=== PATIENT | male | born 1955 | race African-American/Black ===

== ENCOUNTER 2019-07-09 08:15 | Inpatient (IN) ==
[2019-07-09] MEDS ORDERED: DEXTROSE 50% 25 GM/50 ML VIAL IV PRN ×2 (09:06→09:21)
[2019-07-09] MEDS ORDERED: GLUCAGON 1 MG VIAL IM PRN ×2 (09:06→09:21)
[2019-07-09] MEDS ORDERED: CEFUROXIME INJ 1,500 MG in SYRINGE 1 EACH IV ONE (09:06)
[2019-07-09 12:01] LABS: Basophils # 0.1 10*3/uL (0.0-0.2); Basophils % 0.9 % (0.0-0.8); Eosinophils # 0.3 10*3/uL (0.0-0.87); Eosinophils % 4.6 % (0.00-10.9); Hematocrit 29.9 VOL% (42.0-52.0); Immature Granulocytes % 0.3 %; Immature Granulocytes Absolute 0.02 #; Lymphocytes # 1.4 10*3/uL (1.4-4.0); Lymphocytes % 21.5 % (21.2-54.2); Mean Corpuscular HGB Conc 33.4 GM/DL (32-36); Mean Corpuscular Volume 92.6 FL (87-102); Mean Platelet Volume 11.2 FL (9.6-12.0); Neutrophils % 64.7 % (38.7-73.9); Platelet Count 230 T/CUMM (130-400); Red Blood Count 3.23 MC/CUMM (3.8-5.5); Red Cell Distribution Width 13.7 % (9.3-17.3); White Blood Count 6.5 T/CUMM (4-12)
[2019-07-09] MEDS ORDERED: INFLUENZA VIRUS VACCINE 0.5 ML SYRINGE IM ONE (12:01)
[2019-07-09] MEDS ORDERED: PNEUMOCOCCAL VACCINE (13 VALENT) 0.5 ML SYRINGE IM ONE (12:01)
[2019-07-09] MEDS: INSULIN LISPRO 100 UNIT/ML SUBCUT SCH ×3 (12:02→21:03)
[2019-07-09 12:19] LABS: Albumin 2.8 G/DL (3.4-5.0); Bilirubin,Total 0.5 MG/DL (0.2-1.0); Calcium 8.4 MG/DL (8.5-10.1); Osmolality,Calculated 270.1 MOS/KG (273-304)
[2019-07-09] MEDS ORDERED: clonazePAM 0.5 MG TABLET PO PRN (12:32)
[2019-07-09] MEDS ORDERED: HYDROmorphone 2 MG/1 ML VIAL IV PRN (12:35)
[2019-07-09] MEDS: oxyCODONE/ACETAMINOPHEN 5-325 MG TABLET PO PRN ×2 (12:52→20:10)
[2019-07-09] MEDS: CHLORHEXIDINE 4% SOLN 118 ML BOTTLE TOP SCH ×2 (15:15→21:03)
[2019-07-09] MEDS ORDERED: DIAZEPAM 5 MG TABLET PO ONE (20:52)
[2019-07-09] MEDS ORDERED: PANTOPRAZOLE 40 MG TABLET PO ONE (20:52)
[2019-07-09] MEDS: CHLORHEXIDINE 0.12% ORAL RINSE 60 ML BOTTLE SWISH/SPIT SCH (21:03)
[2019-07-10] MEDS: SODIUM CHLORIDE 0.9% 1,000 ML IV SCH ×3 (00:18→20:06)
[2019-07-10 03:38] LABS: ABG Base Excess 0.3 MMOL/L (-2.5-2.5); ABG HCO3 24.7 MMOL/L (20-26); ABG Oxygen Saturation 96.8 % (95-100); ABG PCO2 33.9 MM HG (35-48); ABG PH 7.454 (7.35-7.45); ABG PO2 78.8 MM HG (80-95); ABG TCO2 21.2 MMOL/L (23-27); Allen Test Positive
[2019-07-10] MEDS: oxyCODONE/ACETAMINOPHEN 5-325 MG TABLET PO PRN (03:59)
[2019-07-10] MEDS ORDERED: VANCOMYCIN 500 MG VIAL ONE (04:22)
[2019-07-10] MEDS ORDERED: PAPAVERINE 60 MG/2 ML VIAL ONE (04:22)
[2019-07-10] MEDS ORDERED: VANCOMYCIN 1,000 MG VIAL ONE (04:22)
[2019-07-10] MEDS ORDERED: CEFUROXIME INJ 1,500 MG in SYRINGE 1 EACH IV ONE (06:00)
[2019-07-10] MEDS ORDERED: DIAZEPAM 5 MG TABLET PO ONE (06:00)
[2019-07-10] MEDS ORDERED: PANTOPRAZOLE 40 MG TABLET PO ONE (06:00)
[2019-07-10] MEDS ORDERED: SUFentanil 250 MCG/5 ML AMP ONE (06:00)
[2019-07-10] MEDS ORDERED: MIDAZOLAM 10 MG/2 ML VIAL ONE (06:01)
[2019-07-10] MEDS: CHLORHEXIDINE 4% SOLN 118 ML BOTTLE TOP SCH ×2 (06:25→11:31)
[2019-07-10 07:46] LABS: ABG Base Excess 0.8 MMOL/L (-2.5-2.5); ABG HCO3 25.2 MMOL/L (20-26); ABG PCO2 28.4 MM HG (35-48); ABG PH 7.519 (7.35-7.45); ABG TCO2 21.3 MMOL/L (23-27); Glucose Heart Surgery 170 MG/DL (74-106); Hematocrit Heart Surgery 26.9 PERCENT (42-52); Hemoglobin Heart Surgery 8.7 G/DL (14.0-18.0); Ionized Calcium Arterial 1.13 MMOL/L (1.21-1.46); PCO2 Patient Temp Arterial 28.4 MMHG; PH Patient Temp Arterial 7.519; Patient Temperature 37 CELCIUS; Potassium Heart/CVR 3.5 MMOL/L (3.5-5.1); Sodium Heart/CVR 136 MMOL/L (135-145)
[2019-07-10 08:04] LABS: Apearance,Urine CLEAR (Clear); Bilirubin,Urine Negative (Negative); Blood, Urine Small mg/dL (Negative); Glucose,Urine (UA) >=500 mg/dL (Negative); Ketones,Urine Negative (Negative); Mucus,Urine Occasional /LPF (Occasional); Nitrite,Urine Negative (Negative); Protein,Urine Negative; RBC,Urine 3 /HPF (0-4); Squamous Epithelial Cell,Urine Occasional /HPF (0-10); Urine Color Straw (Yellow); Urine Specific Gravity 1.012 (1.001-1.035); Urine Urobilinogen < 2.0 EU/DL (0.2-1.0); WBC,Urine <1 /HPF (0-6)
[2019-07-10] MEDS ORDERED: POTASSIUM CHLORIDE RIDER 100 ML IV ONE (08:30)
[2019-07-10] MEDS ORDERED: NITROPRUSSIDE 50 MG/2 ML VIAL ONE (08:30)
[2019-07-10] MEDS ORDERED: SODIUM BICARBONATE 50 MEQ/50 ML VIAL IV ONE ×2 (08:30→10:08)
[2019-07-10] MEDS ORDERED: CALCIUM CHLORIDE 1,000 MG/10 ML SYRINGE IV ONE (08:30)
[2019-07-10] MEDS ORDERED: LIDOCAINE 100 MG/5 ML SYRINGE ONE (08:32)
[2019-07-10] MEDS ORDERED: ALBUMIN 5% 12.5 GM/250 ML VIAL IV ONE (08:32)
[2019-07-10] MEDS ORDERED: ATROPINE 1 MG/10 ML SYRINGE ONE (08:32)
[2019-07-10] MEDS ORDERED: EPINEPHrine 1 MG/10 ML SYRINGE ONE (08:32)
[2019-07-10] MEDS ORDERED: PHENYLEPHRINE DRIP 40 MG/250 ML PREMIX IV ONE (08:38)
[2019-07-10 09:00] LABS: Hematocrit Heart Surgery 25.2 PERCENT (42-52); Hemoglobin Heart Surgery 8.1 G/DL (14.0-18.0); PCO2 Patient Temp Venous 28.9 MM HG; PH Patient Temp Venous 7.499; PO2 Patient Temp Venous 38.4 MM HG; Potassium Heart/CVR 4.6 MMOL/L (3.5-5.1); VBG Base Excess -0.2 MEQ/L (0-4); VBG HCO3 24.1 MEQ/L (24-28); VBG PCO2 31.8 MMHG (41-51); VBG PH 7.469; VBG PO2 44.1 MMHG (17-40)
[2019-07-10] MEDS ORDERED: HEPARIN/NACL 0.9% 2 UNITS/ML 500 ML IV ONE (09:07)
[2019-07-10] MEDS ORDERED: NITROGLYCERIN DRIP 50 MG/250 ML BOTTLE IV ONE (09:07)
[2019-07-10] MEDS ORDERED: PHENYLEPHRINE 10 MG/1 ML VIAL IV ONE (09:07)
[2019-07-10] MEDS ORDERED: THROMBIN TOPICAL (RECOMBINANT) 5,000 UNIT VIAL TOP ONE (09:25)
[2019-07-10 09:52] LABS: Hematocrit Heart Surgery 26.1 PERCENT (42-52); Hemoglobin Heart Surgery 8.4 G/DL (14.0-18.0); PH Patient Temp Venous 7.5; PO2 Patient Temp Venous 32.7 MM HG; Potassium Heart/CVR 4.4 MMOL/L (3.5-5.1); VBG HCO3 24.1 MEQ/L (24-28); VBG Oxygen Saturation 72.1 %; VBG PH 7.5; VBG PO2 32.7 MMHG (17-40)
[2019-07-10] MEDS ORDERED: MANNITOL 100 GM/500 ML BAG IV ONE (10:07)
[2019-07-10] MEDS ORDERED: DEXTROSE 5% KCL 20 MEQ 20 MEQ/1,000 ML BAG IV ONE (10:07)
[2019-07-10] MEDS ORDERED: LIDOCAINE 2% 5 ML VIAL ONE ×2 (10:07→11:56)
[2019-07-10] MEDS ORDERED: FUROSEMIDE 20 MG/2 ML VIAL ONE (10:08)
[2019-07-10] MEDS ORDERED: ALBUMIN 25% 25 GM/100 ML VIAL IV ONE ×2 (10:08→10:12)
[2019-07-10] MEDS ORDERED: MAGNESIUM SULFATE 5 GM/10 ML VIAL IV ONE (10:08)
[2019-07-10] MEDS ORDERED: PROTAMINE SULFATE 250 MG/25 ML VIAL IV ONE (10:08)
[2019-07-10] MEDS ORDERED: HEPARIN 10,000 UNIT/10 ML VIAL ONE (10:08)
[2019-07-10] MEDS ORDERED: methylPREDNISolone SOD SUC 1,000 MG/8 ML VIAL ONE (10:08)
[2019-07-10 10:19] LABS: ABG Base Excess -1.2 MMOL/L (-2.5-2.5); ABG HCO3 23.5 MMOL/L (20-26); ABG PCO2 32.3 MM HG (35-48); ABG PH 7.447 (7.35-7.45); ABG TCO2 20.4 MMOL/L (23-27); Glucose Heart Surgery 293 MG/DL (74-106); Hematocrit Heart Surgery 28.8 PERCENT (42-52); Hemoglobin Heart Surgery 9.3 G/DL (14.0-18.0); Ionized Calcium Arterial 1.28 MMOL/L (1.21-1.46); PCO2 Patient Temp Arterial 32.3 MMHG; PH Patient Temp Arterial 7.447; Patient Temperature 37 CELCIUS; Potassium Heart/CVR 3.8 MMOL/L (3.5-5.1); Sodium Heart/CVR 133 MMOL/L (135-145)
[2019-07-10] MEDS ORDERED: MAGNESIUM SULF RIDER 4 GM in PREMIX 1 EACH IV PRN (11:02)
[2019-07-10] MEDS ORDERED: ACETAMINOPHEN 650 MG SUPP RECTAL PRN (11:02)
[2019-07-10] MEDS ORDERED: DEXTROSE 10% 250 ML BAG IV PRN ×2 (11:02)
[2019-07-10] MEDS ORDERED: INSULIN REGULAR 100 UNIT/ML IV PRN (11:02)
[2019-07-10] MEDS ORDERED: CHLORHEXIDINE 4% SOLN 118 ML BOTTLE TOP PRN (11:02)
[2019-07-10] MEDS ORDERED: INSULIN REGULAR DRIP 100 ML IV SCH (11:02)
[2019-07-10] MEDS ORDERED: MORPHINE 10 MG/1 ML VIAL IV PRN (11:02)
[2019-07-10] MEDS ORDERED: ONDANSETRON 4 MG/2 ML VIAL IV PRN (11:02)
[2019-07-10] MEDS ORDERED: MAGNESIUM SULF RIDER 2 GM in PREMIX 1 EACH IV PRN (11:02)
[2019-07-10] MEDS ORDERED: NITROPRUSSIDE 100 MG in DEXTROSE 5% 250 ML IV PRN (11:02)
[2019-07-10] MEDS ORDERED: CALCIUM CHLORIDE 1,000 MG/10 ML SYRINGE IV PRN (11:02)
[2019-07-10] MEDS ORDERED: INSULIN REGULAR 100 UNIT/ML IV ONE (11:02)
[2019-07-10] MEDS ORDERED: PHENYLEPHRINE DRIP 40 MG/250 ML PREMIX IV PRN (11:02)
[2019-07-10] MEDS ORDERED: VECURONIUM 10 MG VIAL IV PRN ×2 (11:02)
[2019-07-10] MEDS ORDERED: MIDAZOLAM 10 MG/2 ML VIAL IV PRN (11:02)
[2019-07-10] MEDS ORDERED: AMIODARONE 450 MG/9 ML VIAL IV ONE (11:14)
[2019-07-10] MEDS: SODIUM CHLORIDE 0.45% 1,000 ML IV SCH ×2 (11:15)
[2019-07-10] MEDS ORDERED: AMIODARONE INJ 450 MG in DEXTROSE 5% 241 ML IV SCH (11:20)
[2019-07-10] MEDS ORDERED: PROTAMINE SULFATE 50 MG/5 ML VIAL IV ONE ×2 (11:27→11:37)
[2019-07-10] MEDS ORDERED: LACTATED RINGERS 1,000 ML IV ONE ×2 (11:30→14:00)
[2019-07-10 11:45] LABS: ABG Base Excess -1.8 MMOL/L (-2.5-2.5); ABG HCO3 22.9 MMOL/L (20-26); ABG Oxygen Saturation 97.6 % (95-100); ABG PO2 87.8 MM HG (80-95); Glucose Heart Surgery 279 MG/DL (74-106); Hematocrit Heart Surgery 31.5 PERCENT (42-52); Hemoglobin Heart Surgery 10.2 G/DL (14.0-18.0); Potassium Heart/CVR 3.3 MMOL/L (3.5-5.1)
[2019-07-10 11:50] LABS: Basophils # 0.1 10*3/uL (0.0-0.2); Basophils % 0.7 % (0.0-0.8); Eosinophils # 0.1 10*3/uL (0.0-0.87); Eosinophils % 0.9 % (0.00-10.9); Hematocrit 30.6 VOL% (42.0-52.0); Hemoglobin 10.3 GM/DL (14.0-18.0); Immature Granulocytes % 0.5 %; Immature Granulocytes Absolute 0.05 #; Lymphocytes # 0.9 10*3/uL (1.4-4.0); Lymphocytes % 9.1 % (21.2-54.2); Mean Corpuscular HGB Conc 33.7 GM/DL (32-36); Mean Corpuscular Volume 89.2 FL (87-102); Mean Platelet Volume 11.2 FL (9.6-12.0); Monocytes % 4.4 % (1.7-12.7); Neutrophils % 84.4 % (38.7-73.9); Platelet Count 162 T/CUMM (130-400); Red Blood Count 3.43 MC/CUMM (3.8-5.5); Red Cell Distribution Width 14.4 % (9.3-17.3); White Blood Count 9.8 T/CUMM (4-12)
[2019-07-10] MEDS ORDERED: SEVOFLURANE 1 UNIT/15 MINUTE INH ONE (11:57)
[2019-07-10] MEDS ORDERED: AMIODARONE 150 MG/3 ML VIAL ONE (11:57)
[2019-07-10] MEDS ORDERED: VECURONIUM 10 MG VIAL IV ONE (11:57)
[2019-07-10] MEDS ORDERED: SODIUM CHLORIDE 0.9% 300 ML IV ONE (11:57)
[2019-07-10] MEDS ORDERED: SODIUM CHLORIDE 0.9% 1,000 ML IV ONE (11:57)
[2019-07-10] MEDS ORDERED: CALCIUM CHLORIDE 1,000 MG/10 ML VIAL IV ONE (11:57)
[2019-07-10] MEDS ORDERED: SODIUM CHLORIDE 0.9% 250 ML IV ONE (11:57)
[2019-07-10] MEDS ORDERED: ETOMIDATE 40 MG/20 ML VIAL IV ONE (11:57)
[2019-07-10] MEDS ORDERED: MINERAL OIL/PETROLATUM OPH OINT 3.5 GM TUBE ONE (11:57)
[2019-07-10] MEDS: POTASSIUM CHLORIDE RIDER 20 MEQ in PREMIX 1 EACH IV PRN ×4 (12:00→18:17)
[2019-07-10 12:03] LABS: INR 1.3; PT Patient Result 13.6 SECS (9.6-12.2); Partial Thromboplastin Time 29.4 SECS (20.8-36.0)
[2019-07-10 12:14] LABS: Albumin 2.9 G/DL (3.4-5.0); Bilirubin,Total 1.4 MG/DL (0.2-1.0); Calcium 8.8 MG/DL (8.5-10.1); Osmolality,Calculated 279.8 MOS/KG (273-304); Total Protein 5.6 G/DL (6.4-8.3)
[2019-07-10] MEDS: POTASSIUM CHLORIDE RIDER 10 MEQ in PREMIX 1 EACH IV PRN ×2 (12:30→19:02)
[2019-07-10 12:36] LABS: CKMB % 2.2 %
[2019-07-10 12:39] LABS: Troponin I 2.14 NG/ML (0.00-0.045)
[2019-07-10 15:08] LABS: ABG Base Excess -1.1 MMOL/L (-2.5-2.5); ABG HCO3 23.5 MMOL/L (20-26); ABG Oxygen Saturation 99.6 % (95-100); ABG PCO2 34.7 MM HG (35-48); ABG PH 7.426 (7.35-7.45); ABG TCO2 20.9 MMOL/L (23-27); Glucose Heart Surgery 219 MG/DL (74-106); Hematocrit Heart Surgery 28.7 PERCENT (42-52); Hemoglobin Heart Surgery 9.2 G/DL (14.0-18.0); Potassium Heart/CVR 3.2 MMOL/L (3.5-5.1)
[2019-07-10] MEDS: ALBUMIN 5% 12.5 GM in PREMIX 1 EACH IV PRN ×2 (15:09→15:20)
[2019-07-10] MEDS: MIDAZOLAM 2 MG/2 ML VIAL IV PRN ×2 (15:41→17:39)
[2019-07-10] MEDS: MORPHINE 4 MG/1 ML VIAL IV PRN (17:58)
[2019-07-10 18:07] LABS: ABG Base Excess -1.6 MMOL/L (-2.5-2.5); ABG HCO3 23.1 MMOL/L (20-26); ABG Oxygen Saturation 99.2 % (95-100); ABG PCO2 35.2 MM HG (35-48); ABG PH 7.414 (7.35-7.45); ABG TCO2 20.5 MMOL/L (23-27); Glucose Heart Surgery 153 MG/DL (74-106); Hematocrit Heart Surgery 30.3 PERCENT (42-52); Hemoglobin Heart Surgery 9.8 G/DL (14.0-18.0); Potassium Heart/CVR 3.6 MMOL/L (3.5-5.1)
[2019-07-10] MEDS ORDERED: HALOPERIDOL 5 MG/ML AMP IV ONE (18:45)
[2019-07-10] MEDS ORDERED: FUROSEMIDE 40 MG/4 ML VIAL IV ONE (18:59)
[2019-07-10] MEDS: CEFUROXIME INJ 1,500 MG in SYRINGE 1 EACH IV SCH (19:19)
[2019-07-10] MEDS: CHLORHEXIDINE 0.12% ORAL RINSE 60 ML BOTTLE SWISH/SPIT SCH (20:06)
[2019-07-10] MEDS: INSULIN LISPRO 100 UNIT/ML SUBCUT SCH (20:06)
[2019-07-10 20:09] LABS: ABG Base Excess -1.5 MMOL/L (-2.5-2.5); ABG HCO3 23.1 MMOL/L (20-26); ABG Oxygen Saturation 99.4 % (95-100); ABG PCO2 32.6 MM HG (35-48); ABG PH 7.438 (7.35-7.45); ABG TCO2 20.1 MMOL/L (23-27)
[2019-07-10] MEDS: LACTATED RINGERS 250 ML IV PRN (20:14)
[2019-07-10 20:33] LABS: ABG Base Excess -2.1 MMOL/L (-2.5-2.5); ABG Oxygen Saturation 98.2 % (95-100); ABG PCO2 30.1 MM HG (35-48); ABG PH 7.462 (7.35-7.45); ABG PO2 165.6 MM HG (80-95); ABG TCO2 21.9 MMOL/L (23-27); Glucose Heart Surgery 128 MG/DL (74-106); Hemoglobin Heart Surgery 9.8 G/DL (14.0-18.0); Potassium Heart/CVR 3.9 MMOL/L (3.5-5.1)
[2019-07-10] MEDS: AMIODARONE INJ 450 MG in DEXTROSE 5% 241 ML IV SCH (21:38)
[2019-07-11] MEDS: CHLORHEXIDINE 0.12% ORAL RINSE 60 ML BOTTLE SWISH/SPIT SCH ×3 (00:02→22:02)
[2019-07-11 00:16] LABS: ABG Base Excess -0.8 MMOL/L (-2.5-2.5); ABG HCO3 22.3 MMOL/L (20-26); ABG PH 7.474 (7.35-7.45); ABG PO2 135.2 MM HG (80-95); ABG TCO2 23.2 MMOL/L (23-27); Glucose Heart Surgery 149 MG/DL (74-106); Hemoglobin Heart Surgery 10.2 G/DL (14.0-18.0); Potassium Heart/CVR 3.4 MMOL/L (3.5-5.1)
[2019-07-11] MEDS: POTASSIUM CHLORIDE RIDER 20 MEQ in PREMIX 1 EACH IV PRN ×5 (00:26→23:15)
[2019-07-11] MEDS: MORPHINE 4 MG/1 ML VIAL IV PRN ×2 (01:58→12:44)
[2019-07-11 04:18] LABS: ABG Base Excess -0.2 MMOL/L (-2.5-2.5); ABG HCO3 24.3 MMOL/L (20-26); ABG PCO2 31.8 MM HG (35-48); ABG PH 7.466 (7.35-7.45); Glucose Heart Surgery 121 MG/DL (74-106); Hematocrit Heart Surgery 28.4 PERCENT (42-52); Hemoglobin Heart Surgery 9.1 G/DL (14.0-18.0); Potassium Heart/CVR 3.9 MMOL/L (3.5-5.1)
[2019-07-11 04:20] LABS: Basophils % 0.1 % (0.0-0.8); Hematocrit 27.4 VOL% (42.0-52.0); Hemoglobin 9.3 GM/DL (14.0-18.0); Immature Granulocytes % 0.5 %; Immature Granulocytes Absolute 0.07 #; Lymphocytes # 1.1 10*3/uL (1.4-4.0); Lymphocytes % 7.3 % (21.2-54.2); Mean Corpuscular HGB Conc 33.9 GM/DL (32-36); Mean Corpuscular Volume 89.3 FL (87-102); Mean Platelet Volume 11.6 FL (9.6-12.0); Monocytes % 5.2 % (1.7-12.7); Neutrophils % 86.9 % (38.7-73.9); Platelet Count 162 T/CUMM (130-400); Red Blood Count 3.07 MC/CUMM (3.8-5.5); Red Cell Distribution Width 14.6 % (9.3-17.3); White Blood Count 14.7 T/CUMM (4-12)
[2019-07-11 04:47] LABS: Albumin 2.6 G/DL (3.4-5.0); Bilirubin,Direct 0.16 MG/DL (0.0-0.20); Bilirubin,Total 0.4 MG/DL (0.2-1.0); Calcium 7.6 MG/DL (8.5-10.1); Osmolality,Calculated 277.4 MOS/KG (273-304); Total Protein 5.3 G/DL (6.4-8.3)
[2019-07-11] MEDS ORDERED: FUROSEMIDE 40 MG/4 ML VIAL IV ONE (05:58)
[2019-07-11] MEDS: CEFUROXIME INJ 1,500 MG in SYRINGE 1 EACH IV SCH ×2 (06:18→18:03)
[2019-07-11] MEDS: DEXMEDETOMIDINE 200 MCG in SODIUM CHLORIDE 0.9% 48 ML IV PRN ×3 (06:37→14:00)
[2019-07-11] MEDS ORDERED: INSULIN REGULAR 100 UNIT/ML SUBCUT SCH (08:00)
[2019-07-11] MEDS: ALBUMIN 5% 12.5 GM in PREMIX 1 EACH IV PRN ×4 (08:16→17:41)
[2019-07-11] MEDS ORDERED: AMINOCAPROIC ACID 5,000 MG/20 ML VIAL ONE (08:41)
[2019-07-11] MEDS ORDERED: PHENYLEPHRINE DRIP 20 MG/250 ML PREMIX IV ONE (08:42)
[2019-07-11 09:16] LABS: ABG Base Excess -2.7 MMOL/L (-2.5-2.5); ABG HCO3 22.2 MMOL/L (20-26); ABG PCO2 30.2 MM HG (35-48); ABG PH 7.442 (7.35-7.45); ABG TCO2 18.8 MMOL/L (23-27); Glucose Heart Surgery 181 MG/DL (74-106); Hematocrit Heart Surgery 29.4 PERCENT (42-52); Hemoglobin Heart Surgery 9.5 G/DL (14.0-18.0); Potassium Heart/CVR 4.5 MMOL/L (3.5-5.1)
[2019-07-11] MEDS: AMIODARONE INJ 450 MG in DEXTROSE 5% 241 ML IV SCH (09:28)
[2019-07-11] MEDS: INSULIN REGULAR 100 UNIT/ML SUBCUT SCH ×4 (09:42→21:55)
[2019-07-11 11:59] LABS: ABG Base Excess -3.5 MMOL/L (-2.5-2.5); ABG HCO3 21.4 MMOL/L (20-26); ABG Oxygen Saturation 95.6 % (95-100); ABG PCO2 31.9 MM HG (35-48); ABG PH 7.411 (7.35-7.45); ABG PO2 73.3 MM HG (80-95); ABG TCO2 18.3 MMOL/L (23-27); Glucose Heart Surgery 221 MG/DL (74-106); Hematocrit Heart Surgery 32.7 PERCENT (42-52); Hemoglobin Heart Surgery 10.6 G/DL (14.0-18.0); Potassium Heart/CVR 4.3 MMOL/L (3.5-5.1)
[2019-07-11] MEDS: SODIUM CHLORIDE 0.45% 1,000 ML IV SCH ×2 (12:29)
[2019-07-11] MEDS: DOBUTamine 500 MG/250 ML PREMIX IV SCH (12:30)
[2019-07-11] MEDS: LACTATED RINGERS 250 ML IV PRN ×4 (12:31→17:29)
[2019-07-11] MEDS: NITROGLYCERIN DRIP 50 MG/250 ML BOTTLE IV PRN (12:50)
[2019-07-11] MEDS: DEXMEDETOMIDINE 400 MCG in SODIUM CHLORIDE 0.9% 96 ML IV PRN ×2 (14:00→21:58)
[2019-07-11 16:33] LABS: ABG Base Excess -2.1 MMOL/L (-2.5-2.5); ABG HCO3 22.7 MMOL/L (20-26); ABG Oxygen Saturation 97.8 % (95-100); ABG PCO2 33.6 MM HG (35-48); ABG PH 7.421 (7.35-7.45); ABG PO2 89.1 MM HG (80-95); Glucose Heart Surgery 187 MG/DL (74-106); Hemoglobin Heart Surgery 9.4 G/DL (14.0-18.0); Potassium Heart/CVR 3.8 MMOL/L (3.5-5.1)
[2019-07-11] MEDS: POTASSIUM CHLORIDE RIDER 10 MEQ in PREMIX 1 EACH IV PRN (16:48)
[2019-07-11] MEDS ORDERED: HEPARIN/NACL 0.9% 2 UNITS/ML 500 ML IV ONE (21:41)
[2019-07-11 21:44] LABS: ABG Base Excess -0.1 MMOL/L (-2.5-2.5); ABG HCO3 24.4 MMOL/L (20-26); ABG Oxygen Saturation 98.2 % (95-100); ABG PCO2 32.2 MM HG (35-48); ABG PH 7.465 (7.35-7.45); ABG PO2 94.6 MM HG (80-95); ABG TCO2 21.1 MMOL/L (23-27); Glucose Heart Surgery 143 MG/DL (74-106); Hematocrit Heart Surgery 29.8 PERCENT (42-52); Hemoglobin Heart Surgery 9.6 G/DL (14.0-18.0); Potassium Heart/CVR 4.3 MMOL/L (3.5-5.1)
[2019-07-12] MEDS: INSULIN REGULAR 100 UNIT/ML SUBCUT SCH ×7 (01:48→23:53)
[2019-07-12] MEDS: AMIODARONE INJ 450 MG in DEXTROSE 5% 241 ML IV SCH ×2 (01:56→18:55)
[2019-07-12 03:34] LABS: ABG Base Excess -1.2 MMOL/L (-2.5-2.5); ABG HCO3 21.7 MMOL/L (20-26); ABG Oxygen Saturation 97.6 % (95-100); ABG PCO2 30.2 MM HG (35-48); ABG PH 7.475 (7.35-7.45); ABG PO2 106.3 MM HG (80-95); ABG TCO2 22.7 MMOL/L (23-27); Glucose Heart Surgery 145 MG/DL (74-106); Hemoglobin Heart Surgery 10.2 G/DL (14.0-18.0); Potassium Heart/CVR 4.4 MMOL/L (3.5-5.1)
[2019-07-12 04:09] LABS: Albumin 2.9 G/DL (3.4-5.0); Bilirubin,Direct 0.23 MG/DL (0.0-0.20); Bilirubin,Total 0.6 MG/DL (0.2-1.0); Osmolality,Calculated 276.5 MOS/KG (273-304); Total Protein 5.7 G/DL (6.4-8.3)
[2019-07-12 05:23] LABS: ABG Base Excess -1.8 MMOL/L (-2.5-2.5); ABG HCO3 22.9 MMOL/L (20-26); ABG Oxygen Saturation 98.6 % (95-100); ABG PCO2 32.2 MM HG (35-48); ABG PH 7.438 (7.35-7.45); ABG TCO2 19.8 MMOL/L (23-27); Glucose Heart Surgery 164 MG/DL (74-106); Hematocrit Heart Surgery 29.7 PERCENT (42-52); Hemoglobin Heart Surgery 9.6 G/DL (14.0-18.0); Potassium Heart/CVR 4.4 MMOL/L (3.5-5.1)
[2019-07-12 06:48] LABS: Basophils % 0.1 % (0.0-0.8); Hematocrit 28.9 VOL% (42.0-52.0); Hemoglobin 9.5 GM/DL (14.0-18.0); Immature Granulocytes % 1.2 %; Immature Granulocytes Absolute 0.18 #; Lymphocytes # 1.4 10*3/uL (1.4-4.0); Lymphocytes % 9.3 % (21.2-54.2); Mean Corpuscular HGB Conc 32.9 GM/DL (32-36); Mean Corpuscular Volume 91.7 FL (87-102); Mean Platelet Volume 12.1 FL (9.6-12.0); Monocytes % 7.5 % (1.7-12.7); Neutrophils % 81.9 % (38.7-73.9); Platelet Count 162 T/CUMM (130-400); Red Blood Count 3.15 MC/CUMM (3.8-5.5); White Blood Count 14.8 T/CUMM (4-12)
[2019-07-12] MEDS: DEXMEDETOMIDINE 400 MCG in SODIUM CHLORIDE 0.9% 96 ML IV PRN (07:30)
[2019-07-12] MEDS: CHLORHEXIDINE 0.12% ORAL RINSE 60 ML BOTTLE SWISH/SPIT SCH ×2 (09:10→21:16)
[2019-07-12] MEDS: MORPHINE 4 MG/1 ML VIAL IV PRN ×3 (09:45→21:26)
[2019-07-12] MEDS: SODIUM CHLORIDE 0.45% 1,000 ML IV SCH ×2 (10:30)
[2019-07-12 11:21] LABS: ABG Base Excess -1.4 MMOL/L (-2.5-2.5); ABG HCO3 22.4 MMOL/L (20-26); ABG Oxygen Saturation 95.9 % (95-100); ABG PCO2 33.9 MM HG (35-48); ABG PH 7.438 (7.35-7.45); ABG PO2 84.3 MM HG (80-95); ABG TCO2 23.4 MMOL/L (23-27); Glucose Heart Surgery 177 MG/DL (74-106); Hemoglobin Heart Surgery 9.5 G/DL (14.0-18.0)
[2019-07-12] MEDS: DOBUTamine 500 MG/250 ML PREMIX IV SCH (12:30)
[2019-07-12 15:42] LABS: ABG Base Excess 0.5 MMOL/L (-2.5-2.5); ABG HCO3 24.9 MMOL/L (20-26); ABG Oxygen Saturation 95.1 % (95-100); ABG PCO2 35.4 MM HG (35-48); ABG PH 7.445 (7.35-7.45); ABG PO2 71.6 MM HG (80-95); ABG TCO2 22.3 MMOL/L (23-27); Glucose Heart Surgery 171 MG/DL (74-106); Potassium Heart/CVR 3.8 MMOL/L (3.5-5.1)
[2019-07-12] MEDS: POTASSIUM CHLORIDE RIDER 20 MEQ in PREMIX 1 EACH IV PRN (16:06)
[2019-07-13 04:50] LABS: Basophils % 0.1 % (0.0-0.8); Eosinophils % 0.1 % (0.00-10.9); Hematocrit 24.7 VOL% (42.0-52.0); Hemoglobin 8.3 GM/DL (14.0-18.0); Immature Granulocytes Absolute 0.14 #; Lymphocytes # 1.4 10*3/uL (1.4-4.0); Lymphocytes % 10.3 % (21.2-54.2); Mean Corpuscular HGB Conc 33.6 GM/DL (32-36); Mean Corpuscular Volume 90.1 FL (87-102); Mean Platelet Volume 11.5 FL (9.6-12.0); Monocytes % 6.5 % (1.7-12.7); Platelet Count 175 T/CUMM (130-400); Red Blood Count 2.74 MC/CUMM (3.8-5.5); Red Cell Distribution Width 14.7 % (9.3-17.3); White Blood Count 13.6 T/CUMM (4-12)
[2019-07-13] MEDS: INSULIN REGULAR 100 UNIT/ML SUBCUT SCH ×5 (04:55→21:02)
[2019-07-13 05:23] LABS: Albumin 2.9 G/DL (3.4-5.0); Bilirubin,Direct 0.24 MG/DL (0.0-0.20); Bilirubin,Total 0.9 MG/DL (0.2-1.0); Calcium 7.7 MG/DL (8.5-10.1); Osmolality,Calculated 277.4 MOS/KG (273-304); Total Protein 5.8 G/DL (6.4-8.3)
[2019-07-13] MEDS ORDERED: traMADol 50 MG TABLET PO PRN (06:15)
[2019-07-13] MEDS ORDERED: FUROSEMIDE 40 MG/4 ML VIAL IV ONE (06:15)
[2019-07-13] MEDS: NITROGLYCERIN DRIP 50 MG/250 ML BOTTLE IV PRN (06:31)
[2019-07-13] MEDS: AMIODARONE INJ 450 MG in DEXTROSE 5% 241 ML IV SCH ×2 (06:38→12:11)
[2019-07-13] MEDS: MORPHINE 4 MG/1 ML VIAL IV PRN (07:23)
[2019-07-13] MEDS ORDERED: HALOPERIDOL 5 MG/ML AMP IV ONE (07:33)
[2019-07-13] MEDS: CHLORHEXIDINE 0.12% ORAL RINSE 60 ML BOTTLE SWISH/SPIT SCH ×2 (08:00→21:03)
[2019-07-13] MEDS: ATORVASTATIN 10 MG TABLET PO SCH (08:02)
[2019-07-13] MEDS: clonazePAM 0.5 MG TABLET PO SCH ×2 (08:02→21:02)
[2019-07-13] MEDS: GABAPENTIN 100 MG CAPSULE PO SCH ×3 (08:02→21:03)
[2019-07-13] MEDS: DONEPEZIL 5 MG TABLET PO SCH (08:02)
[2019-07-13] MEDS ORDERED: METOPROLOL TARTRATE 5 MG/5 ML VIAL IV ONE ×2 (08:18→08:24)
[2019-07-13] MEDS ORDERED: FERROUS SULFATE 325 MG TABLET PO PRN (09:00)
[2019-07-13] MEDS ORDERED: amLODIPine 5 MG TABLET PO SCH (09:00)
[2019-07-13] MEDS: CLORAZEPATE 7.5 MG TABLET PO PRN ×2 (09:07→16:41)
[2019-07-13] MEDS: METOPROLOL TARTRATE 25 MG TABLET PO SCH ×2 (13:05→21:03)
[2019-07-13] MEDS: ASPIRIN EC 81 MG TABLET PO SCH (13:05)
[2019-07-13] MEDS ORDERED: amLODIPine 5 MG TABLET PO ONE (16:24)
[2019-07-13] MEDS ORDERED: hydrALAZINE 20 MG/1 ML VIAL IV PRN (16:24)
[2019-07-13] MEDS: SODIUM CHLORIDE 0.45% 1,000 ML IV SCH ×2 (16:34)
[2019-07-13] MEDS: TRIAMTERENE/HCTZ 37.5-25 MG CAPSULE PO SCH (16:35)
[2019-07-14] MEDS: INSULIN REGULAR 100 UNIT/ML SUBCUT SCH ×4 (02:43→11:42)
[2019-07-14] MEDS: AMIODARONE INJ 450 MG in DEXTROSE 5% 241 ML IV SCH ×3 (02:43→11:25)
[2019-07-14 05:17] LABS: Basophils # 0.1 10*3/uL (0.0-0.2); Basophils % 0.6 % (0.0-0.8); Eosinophils # 0.1 10*3/uL (0.0-0.87); Eosinophils % 0.7 % (0.00-10.9); Hematocrit 32.3 VOL% (42.0-52.0); Hemoglobin 10.9 GM/DL (14.0-18.0); Immature Granulocytes % 0.9 %; Immature Granulocytes Absolute 0.12 #; Lymphocytes # 2.8 10*3/uL (1.4-4.0); Lymphocytes % 20.2 % (21.2-54.2); Mean Corpuscular HGB Conc 33.7 GM/DL (32-36); Mean Corpuscular Volume 90.7 FL (87-102); Mean Platelet Volume 10.8 FL (9.6-12.0); Monocytes % 6.6 % (1.7-12.7); Platelet Count 235 T/CUMM (130-400); Red Blood Count 3.56 MC/CUMM (3.8-5.5); Red Cell Distribution Width 14.5 % (9.3-17.3); White Blood Count 13.8 T/CUMM (4-12)
[2019-07-14 05:41] LABS: Alanine Aminotransferase 48 U/L (16-61); Albumin 3.1 G/DL (3.4-5.0); Alkaline Phosphatase 88 U/L (45-117); Aspartate Amino Transferase 61 U/L (0-37); Blood Urea Nitrogen 8 MG/DL (7-18); Calcium 8.9 MG/DL (8.5-10.1); Estimated Glom Filtration Rate 139 ML/MIN; Glucose 142 MG/DL (74-106); Osmolality,Calculated 265.4 MOS/KG (273-304); Total Protein 6.9 G/DL (6.4-8.3)
[2019-07-14] MEDS ORDERED: CLORAZEPATE 7.5 MG TABLET PO PRN (07:25)
[2019-07-14] MEDS: clonazePAM 0.5 MG TABLET PO SCH (08:35)
[2019-07-14] MEDS: CLORAZEPATE 7.5 MG TABLET PO PRN (08:36)
[2019-07-14] MEDS: GABAPENTIN 100 MG CAPSULE PO SCH (08:36)
[2019-07-14] MEDS: METOPROLOL TARTRATE 25 MG TABLET PO SCH (08:36)
[2019-07-14] MEDS: AMIODARONE 200 MG TABLET PO SCH ×2 (08:36→21:30)
[2019-07-14] MEDS: amLODIPine 10 MG TABLET PO SCH (08:36)
[2019-07-14] MEDS: ATORVASTATIN 10 MG TABLET PO SCH (08:36)
[2019-07-14] MEDS: DONEPEZIL 5 MG TABLET PO SCH (08:36)
[2019-07-14] MEDS: ASPIRIN EC 81 MG TABLET PO SCH (08:37)
[2019-07-14] MEDS: CHLORHEXIDINE 0.12% ORAL RINSE 60 ML BOTTLE SWISH/SPIT SCH ×3 (08:37→21:30)
[2019-07-14] MEDS: TRIAMTERENE/HCTZ 37.5-25 MG CAPSULE PO SCH (08:52)
[2019-07-14] MEDS: POTASSIUM CHLORIDE RIDER 20 MEQ in PREMIX 1 EACH IV PRN (08:53)
[2019-07-14] MEDS: POTASSIUM CHLORIDE RIDER 10 MEQ in PREMIX 1 EACH IV PRN (10:00)
[2019-07-14] MEDS: SODIUM CHLORIDE 0.45% 1,000 ML IV SCH ×2 (11:25)
[2019-07-14] MEDS ORDERED: DEXTROSE 10% 250 ML BAG IV PRN (12:55)
[2019-07-14] MEDS ORDERED: ACETAMINOPHEN 325 MG TABLET PO PRN (12:55)
[2019-07-14] MEDS ORDERED: GLUCAGON 1 MG VIAL IM PRN (12:55)
[2019-07-14] MEDS ORDERED: ONDANSETRON 4 MG/2 ML VIAL IV PRN (12:55)
[2019-07-14] MEDS ORDERED: MAGNESIUM HYDROXIDE SUSP 30 ML UDCUP PO PRN (12:55)
[2019-07-14] MEDS ORDERED: oxyCODONE/ACETAMINOPHEN 5-325 MG TABLET PO PRN (12:55)
[2019-07-14] MEDS ORDERED: KETOROLAC 30 MG/1 ML VIAL IV PRN (12:55)
[2019-07-14] MEDS ORDERED: MAGNESIUM SULF RIDER 2 GM in PREMIX 1 EACH IV PRN (12:55)
[2019-07-14] MEDS ORDERED: MAGNESIUM SULF RIDER 4 GM in PREMIX 1 EACH IV PRN (12:55)
[2019-07-14] MEDS ORDERED: ALUMINUM/MAGNES/SIMETH MAX STR 30 ML UDCUP PO PRN (12:55)
[2019-07-14] MEDS ORDERED: ZALEPLON 5 MG CAPSULE PO PRN (12:55)
[2019-07-14] MEDS ORDERED: SODIUM CHLOR 0.45% KCL 20 MEQ 20 MEQ/1,000 ML BAG IV SCH (12:55)
[2019-07-14] MEDS: DOCUSATE SODIUM 100 MG CAPSULE PO SCH (15:17)
[2019-07-14] MEDS: FERROUS SULFATE 325 MG TABLET PO SCH (15:17)
[2019-07-14] MEDS: PANTOPRAZOLE 40 MG TABLET PO SCH (15:18)
[2019-07-14] MEDS: DEXTROSE 10% 250 ML BAG IV PRN (15:50)
[2019-07-14] MEDS: DEXTROSE 5% NACL 0.9% 1,000 ML IV SCH (17:22)
[2019-07-14] MEDS: hydrALAZINE 25 MG TABLET PO SCH (21:30)
[2019-07-15 04:35] LABS: Basophils # 0.1 10*3/uL (0.0-0.2); Basophils % 0.8 % (0.0-0.8); Eosinophils # 0.2 10*3/uL (0.0-0.87); Eosinophils % 1.5 % (0.00-10.9); Hematocrit 32.5 VOL% (42.0-52.0); Hemoglobin 10.6 GM/DL (14.0-18.0); Immature Granulocytes % 0.6 %; Immature Granulocytes Absolute 0.07 #; Lymphocytes # 2.9 10*3/uL (1.4-4.0); Lymphocytes % 25.3 % (21.2-54.2); Mean Corpuscular HGB Conc 32.6 GM/DL (32-36); Mean Corpuscular Volume 92.3 FL (87-102); Mean Platelet Volume 10.7 FL (9.6-12.0); Monocytes % 7.8 % (1.7-12.7); Platelet Count 287 T/CUMM (130-400); Red Blood Count 3.52 MC/CUMM (3.8-5.5); Red Cell Distribution Width 14.1 % (9.3-17.3); White Blood Count 11.5 T/CUMM (4-12)
[2019-07-15 05:12] LABS: Alanine Aminotransferase 95 U/L (16-61); Albumin 2.8 G/DL (3.4-5.0); Alkaline Phosphatase 92 U/L (45-117); Aspartate Amino Transferase 90 U/L (0-37); Bilirubin,Indirect 1.2 MG/DL (0.0-1.0); Blood Urea Nitrogen 9 MG/DL (7-18); Calcium 8.7 MG/DL (8.5-10.1); Estimated Glom Filtration Rate 125 ML/MIN; Glucose 187 MG/DL (74-106); Osmolality,Calculated 271.2 MOS/KG (273-304); Total Protein 6.6 G/DL (6.4-8.3)
[2019-07-15] MEDS ORDERED: FUROSEMIDE 40 MG/4 ML VIAL IV ONE (06:00)
[2019-07-15] MEDS: ATORVASTATIN 10 MG TABLET PO SCH (09:10)
[2019-07-15] MEDS: AMIODARONE 200 MG TABLET PO SCH (09:10)
[2019-07-15] MEDS: DOCUSATE SODIUM 100 MG CAPSULE PO SCH (09:10)
[2019-07-15] MEDS: amLODIPine 10 MG TABLET PO SCH (09:10)
[2019-07-15] MEDS: hydrALAZINE 25 MG TABLET PO SCH ×3 (09:11→22:36)
[2019-07-15] MEDS: TRIAMTERENE/HCTZ 37.5-25 MG CAPSULE PO SCH (09:11)
[2019-07-15] MEDS: PANTOPRAZOLE 40 MG TABLET PO SCH (09:11)
[2019-07-15] MEDS: DONEPEZIL 5 MG TABLET PO SCH (09:11)
[2019-07-15] MEDS: FERROUS SULFATE 325 MG TABLET PO SCH (09:11)
[2019-07-15] MEDS: CHLORHEXIDINE 0.12% ORAL RINSE 60 ML BOTTLE SWISH/SPIT SCH ×2 (09:11→22:36)
[2019-07-15] MEDS: ASPIRIN EC 81 MG TABLET PO SCH (09:11)
[2019-07-15] MEDS: DEXTROSE 5% NACL 0.9% 1,000 ML IV SCH (10:45)
[2019-07-15] MEDS ORDERED: AMIODARONE INJ 100 MG in DEXTROSE 5% 100 ML IV ONE (11:21)
[2019-07-15] MEDS ORDERED: AMIODARONE 450 MG/9 ML VIAL IV ONE (11:30)
[2019-07-15] MEDS ORDERED: AMIODARONE 150 MG/3 ML VIAL ONE (11:30)
[2019-07-15] MEDS: AMIODARONE INJ 450 MG in DEXTROSE 5% 241 ML IV SCH (12:00)
[2019-07-16] MEDS: DEXTROSE 5% NACL 0.9% 1,000 ML IV SCH ×3 (00:15→16:00)
[2019-07-16] MEDS: DEXTROSE 10% 250 ML BAG IV PRN (02:00)
[2019-07-16] MEDS: AMIODARONE INJ 450 MG in DEXTROSE 5% 241 ML IV SCH (05:00)
[2019-07-16 06:54] LABS: Basophils # 0.1 10*3/uL (0.0-0.2); Basophils % 0.6 % (0.0-0.8); Eosinophils # 0.3 10*3/uL (0.0-0.87); Hematocrit 30.3 VOL% (42.0-52.0); Hemoglobin 10.1 GM/DL (14.0-18.0); Immature Granulocytes % 0.5 %; Immature Granulocytes Absolute 0.06 #; Lymphocytes # 2.3 10*3/uL (1.4-4.0); Lymphocytes % 20.3 % (21.2-54.2); Mean Corpuscular HGB Conc 33.3 GM/DL (32-36); Mean Corpuscular Volume 90.4 FL (87-102); Mean Platelet Volume 10.5 FL (9.6-12.0); Monocytes % 7.6 % (1.7-12.7); Platelet Count 339 T/CUMM (130-400); Red Blood Count 3.35 MC/CUMM (3.8-5.5); Red Cell Distribution Width 13.9 % (9.3-17.3); White Blood Count 11.5 T/CUMM (4-12)
[2019-07-16 07:21] LABS: Alanine Aminotransferase 168 U/L (16-61); Albumin 2.9 G/DL (3.4-5.0); Alkaline Phosphatase 95 U/L (45-117); Aspartate Amino Transferase 112 U/L (0-37); Bilirubin,Indirect 0.5 MG/DL (0.0-1.0); Blood Urea Nitrogen 6 MG/DL (7-18); Calcium 8.5 MG/DL (8.5-10.1); Estimated Glom Filtration Rate 118 ML/MIN; Glucose 213 MG/DL (74-106); Osmolality,Calculated 273.1 MOS/KG (273-304); Total Protein 6.7 G/DL (6.4-8.3)
[2019-07-16 07:23] LABS: Troponin I 0.687 NG/ML (0.00-0.045)
[2019-07-16] MEDS: ASPIRIN EC 81 MG TABLET PO SCH (10:52)
[2019-07-16] MEDS: DOCUSATE SODIUM 100 MG CAPSULE PO SCH (10:52)
[2019-07-16] MEDS: TRIAMTERENE/HCTZ 37.5-25 MG CAPSULE PO SCH (10:52)
[2019-07-16] MEDS: ATORVASTATIN 10 MG TABLET PO SCH (10:53)
[2019-07-16] MEDS: CHLORHEXIDINE 0.12% ORAL RINSE 60 ML BOTTLE SWISH/SPIT SCH ×2 (10:53→22:40)
[2019-07-16] MEDS: DONEPEZIL 5 MG TABLET PO SCH (10:53)
[2019-07-16] MEDS: PANTOPRAZOLE 40 MG TABLET PO SCH (10:53)
[2019-07-16] MEDS: FERROUS SULFATE 325 MG TABLET PO SCH (10:53)
[2019-07-16] MEDS: amLODIPine 10 MG TABLET PO SCH (10:53)
[2019-07-16] MEDS: hydrALAZINE 25 MG TABLET PO SCH ×3 (10:53→22:35)
[2019-07-16] MEDS: AMIODARONE 200 MG TABLET PO SCH (22:36)
[2019-07-17] MEDS: DEXTROSE 5% NACL 0.9% 1,000 ML IV SCH (05:06)
[2019-07-17 06:55] LABS: Basophils # 0.1 10*3/uL (0.0-0.2); Basophils % 0.4 % (0.0-0.8); Eosinophils # 0.3 10*3/uL (0.0-0.87); Eosinophils % 2.9 % (0.00-10.9); Hemoglobin 9.9 GM/DL (14.0-18.0); Immature Granulocytes % 0.5 %; Immature Granulocytes Absolute 0.06 #; Lymphocytes # 2.2 10*3/uL (1.4-4.0); Lymphocytes % 19.3 % (21.2-54.2); Mean Corpuscular Volume 92.9 FL (87-102); Mean Platelet Volume 10.6 FL (9.6-12.0); Neutrophils % 67.9 % (38.7-73.9); Platelet Count 350 T/CUMM (130-400); Red Blood Count 3.23 MC/CUMM (3.8-5.5); Red Cell Distribution Width 13.9 % (9.3-17.3); White Blood Count 11.4 T/CUMM (4-12)
[2019-07-17 07:23] LABS: Albumin 2.8 G/DL (3.4-5.0); Bilirubin,Total 0.7 MG/DL (0.2-1.0); Calcium 8.3 MG/DL (8.5-10.1); Osmolality,Calculated 272.1 MOS/KG (273-304); Total Protein 6.8 G/DL (6.4-8.3)
[2019-07-17] MEDS: DONEPEZIL 5 MG TABLET PO SCH (09:28)
[2019-07-17] MEDS: FERROUS SULFATE 325 MG TABLET PO SCH (09:28)
[2019-07-17] MEDS: PANTOPRAZOLE 40 MG TABLET PO SCH (09:28)
[2019-07-17] MEDS: POTASSIUM CHLORIDE 20 MEQ TABLET PO PRN ×2 (09:28→11:41)
[2019-07-17] MEDS: ATORVASTATIN 10 MG TABLET PO SCH (09:28)
[2019-07-17] MEDS: AMIODARONE 200 MG TABLET PO SCH (09:28)
[2019-07-17] MEDS: hydrALAZINE 25 MG TABLET PO SCH (09:28)
[2019-07-17] MEDS: ASPIRIN EC 81 MG TABLET PO SCH (09:28)
[2019-07-17] MEDS: amLODIPine 10 MG TABLET PO SCH (09:29)
[2019-07-17] MEDS: DOCUSATE SODIUM 100 MG CAPSULE PO SCH (09:29)
[2019-07-17] MEDS: TRIAMTERENE/HCTZ 37.5-25 MG CAPSULE PO SCH (09:31)
[2019-07-17] MEDS: CHLORHEXIDINE 0.12% ORAL RINSE 60 ML BOTTLE SWISH/SPIT SCH (09:35)
[2019-07-17 12:30] VITALS: BP 151/73
== END 2019-07-17 16:32 | disposition home health service (06) | DRG 236 ==
LOC: SUPCPDRO 11:31 → N.TELES 11:31 → N.CVR 07-10 10:54 → N.ICU 07-12 17:30 → N.TELES 07-14 13:04

== ENCOUNTER 2019-07-31 18:12 | Inpatient (IN) ==
[2019-07-31] MEDS ORDERED: DEXTROSE 50% 25 GM/50 ML SYRINGE IV ONE (18:52)
[2019-07-31] MEDS ORDERED: ETOMIDATE 20 MG/10 ML VIAL IV ONE (19:09)
[2019-07-31] MEDS ORDERED: ROCURONIUM 100 MG/10 ML VIAL IV ONE (19:10)
[2019-07-31] MEDS ORDERED: NOREPINEPHRINE 4 MG/4 ML VIAL IV ONE (19:25)
[2019-07-31] MEDS: NOREPINEPHRINE 8 MG in SODIUM CHLORIDE 0.9% 242 ML IV PRN (19:30)
[2019-07-31] MEDS ORDERED: DEXTROSE 10% 250 ML IV SCH (19:30)
[2019-07-31 19:40] LABS: Amorphous Crystals,Urine Occasional /HPF (Few); Apearance,Urine CLOUDY (Clear); Bilirubin,Urine Negative (Negative); Blood, Urine Large mg/dL (Negative); Glucose,Urine (UA) >=500 mg/dL (Negative); Hyaline Casts,Urine 52 /LPF (0-3); Ketones,Urine Negative (Negative); Mucus,Urine Few /LPF (Occasional); Nitrite,Urine Negative (Negative); Protein,Urine 30 MG/DL; RBC,Urine 13 /HPF (0-4); Squamous Epithelial Cell,Urine Occasional /HPF (0-10); Urine Color Yellow (Yellow); Urine Specific Gravity 1.013 (1.001-1.035); Urine Urobilinogen < 2.0 EU/DL (0.2-1.0); WBC,Urine 8 /HPF (0-6)
[2019-07-31] MEDS ORDERED: HEPARIN 1,000 UNIT/1 ML VIAL ONE (20:01)
[2019-07-31 20:28] LABS: Basophils # 0.1 10*3/uL (0.0-0.2); Basophils % 0.3 % (0.0-0.8); Eosinophils # 0.2 10*3/uL (0.0-0.87); Eosinophils % 0.4 % (0.00-10.9); Immature Granulocytes Absolute 3.04 #; Lymphocytes # 2.9 10*3/uL (1.4-4.0); Lymphocytes % 7.6 % (21.2-54.2); Mean Corpuscular HGB Conc 29.6 GM/DL (32-36); Mean Corpuscular Volume 103.8 FL (87-102); Mean Platelet Volume 9.9 FL (9.6-12.0); Monocytes % 4.3 % (1.7-12.7); NRBC # 0.11 10*3/uL; Neutrophils % 79.4 % (38.7-73.9); Platelet Count 430 T/CUMM (130-400); Red Cell Distribution Width 15.6 % (9.3-17.3); White Blood Count 37.9 T/CUMM (4-12)
[2019-07-31] MEDS ORDERED: LEVOFLOXACIN INJ 750 MG in PREMIX 1 EACH IV STA (21:14)
[2019-07-31 21:26] LABS: Albumin 2.2 G/DL (3.4-5.0); Bilirubin,Total 0.8 MG/DL (0.2-1.0); Calcium 7.6 MG/DL (8.5-10.1); Total Protein 5.4 G/DL (6.4-8.3)
[2019-07-31 21:32] LABS: ABG Base Excess -23.6 MMOL/L (-2.5-2.5); ABG HCO3 7.6 MMOL/L (20-26); ABG Oxygen Saturation 99.4 % (95-100); ABG PCO2 21.4 MM HG (35-48); ABG TCO2 5.7 MMOL/L (23-27)
[2019-07-31 21:35] LABS: Osmolality,Calculated 299.1 MOS/KG (273-304)
[2019-07-31 21:35] LABS: ABG PH 7.041 (7.35-7.45)
[2019-07-31 21:36] LABS: Band Neutrophils 1 % (0-10); Lymphocytes 9 % (20-55); Macrocytosis 2+; Myelocytes 1 %; Platelet Estimate Increased; Segmented Neutrophils 82 % (50-85); Total Cells Counted 100
[2019-07-31] MEDS ORDERED: SODIUM CHLORIDE 0.9% 1,000 ML IV STA (21:39)
[2019-07-31] MEDS ORDERED: INSULIN REGULAR 100 UNIT/ML IV STA (21:39)
[2019-07-31] MEDS ORDERED: SODIUM BICARBONATE 50 MEQ/50 ML VIAL IV ONE ×2 (21:41→21:47)
[2019-07-31] MEDS ORDERED: SODIUM BICARBONATE 50 MEQ/50 ML VIAL IV STA (21:59)
[2019-07-31] MEDS ORDERED: SODIUM BICARB INJ 50 MEQ in SODIUM CHLORIDE 0.45% 1,000 ML IV SCH (22:00)
[2019-07-31] MEDS ORDERED: VANCOMYCIN INJ 1,000 MG in SODIUM CHLORIDE 0.9% 250 ML IV STA (22:02)
[2019-07-31 22:03] LABS: INR 1.5; PT Patient Result 15.6 SECS (9.8-11.9); Partial Thromboplastin Time 40.4 SECS (23.9-33.8)
[2019-08-01] MEDS ORDERED: ACETAMINOPHEN 325 MG TABLET PO PRN (00:39)
[2019-08-01] MEDS ORDERED: ONDANSETRON 4 MG/2 ML VIAL IV PRN (00:39)
[2019-08-01] MEDS ORDERED: DEXTROSE 50% 25 GM/50 ML VIAL IV PRN (00:43)
[2019-08-01] MEDS ORDERED: GLUCAGON 1 MG VIAL IM PRN (00:43)
[2019-08-01] MEDS ORDERED: ENOXAPARIN 30 MG/0.3 ML SYRINGE SUBCUT SCH (01:00)
[2019-08-01] MEDS ORDERED: HEPARIN DRIP 25,000 UNITS/500 ML PREMIX IV SCH (01:00)
[2019-08-01] MEDS ORDERED: FAMOTIDINE 20 MG/2 ML VIAL IV SCH (01:00)
[2019-08-01 03:06] LABS: ABG Base Excess -21.6 MMOL/L (-2.5-2.5); ABG HCO3 8.6 MMOL/L (20-26); ABG Oxygen Saturation 99.5 % (95-100); ABG PCO2 24.7 MM HG (35-48); ABG TCO2 7.1 MMOL/L (23-27)
[2019-08-01 03:13] LABS: ABG PH 7.072 (7.35-7.45)
[2019-08-01] MEDS ORDERED: SODIUM CHLORIDE 0.9% 1,000 ML IV ONE ×3 (03:16→15:24)
[2019-08-01] MEDS ORDERED: SODIUM BICARBONATE 50 MEQ/50 ML VIAL IV ONE ×2 (03:17→07:53)
[2019-08-01 03:25] LABS: Basophils # 0.2 10*3/uL (0.0-0.2); Basophils % 0.5 % (0.0-0.8); Eosinophils # 0.2 10*3/uL (0.0-0.87); Eosinophils % 0.5 % (0.00-10.9); Immature Granulocytes % 10.6 %; Immature Granulocytes Absolute 4.62 #; Lymphocytes # 3.5 10*3/uL (1.4-4.0); Lymphocytes % 7.9 % (21.2-54.2); Mean Corpuscular HGB Conc 29.6 GM/DL (32-36); Mean Corpuscular Volume 104.2 FL (87-102); Mean Platelet Volume 10.2 FL (9.6-12.0); Monocytes % 5.6 % (1.7-12.7); NRBC # 0.39 10*3/uL; Neutrophils % 74.9 % (38.7-73.9); Platelet Count 481 T/CUMM (130-400); Red Blood Count 2.59 MC/CUMM (3.8-5.5); Red Cell Distribution Width 15.9 % (9.3-17.3)
[2019-08-01 03:34] LABS: White Blood Count 43.8 T/CUMM (4-12)
[2019-08-01 03:42] LABS: Alanine Aminotransferase 1819 U/L (16-61); Albumin 2.1 G/DL (3.4-5.0); Alkaline Phosphatase 138 U/L (45-117); Aspartate Amino Transferase 3312 U/L (0-37); Blood Urea Nitrogen 41 MG/DL (7-18); Calcium 7.6 MG/DL (8.5-10.1); Estimated Glom Filtration Rate 21 ML/MIN; Glucose 442 MG/DL (74-106); Osmolality,Calculated 296.2 MOS/KG (273-304); Total Protein 5.8 G/DL (6.4-8.3)
[2019-08-01 04:57] LABS: Anisocytosis 1+; Atypical Lymphocytes Few; Band Neutrophils 2 % (0-10); Hypochromasia 1+; Lymphocytes 11 % (20-55); Microcytosis 1+; Myelocytes 2 %; Platelet Estimate Adequate; Polychromasia 1+; Segmented Neutrophils 82 % (50-85); Smudge Cells Few; Total Cells Counted 100
[2019-08-01] MEDS: INSULIN LISPRO 100 UNIT/ML SUBCUT SCH ×6 (05:15→21:45)
[2019-08-01] MEDS: SODIUM BICARB INJ 150 MEQ in STERILE WATER INJ 850 ML IV SCH ×4 (05:20→23:28)
[2019-08-01] MEDS ORDERED: INSULIN REGULAR DRIP 100 ML IV PRN (07:55)
[2019-08-01] MEDS ORDERED: fentaNYL INJ 1,250 MCG in SODIUM CHLORIDE 0.9% 225 ML IV PRN (07:58)
[2019-08-01] MEDS ORDERED: CEFEPIME 1,000 MG in SODIUM CHLORIDE 0.9% 100 ML IV SCH (08:00)
[2019-08-01] MEDS ORDERED: VANCOMYCIN INJ 1,000 MG in SODIUM CHLORIDE 0.9% 250 ML IV PRN (08:00)
[2019-08-01] MEDS: HEPARIN 5,000 UNIT/1 ML VIAL SUBCUT SCH ×2 (08:11→21:45)
[2019-08-01] MEDS: metroNIDAZOLE INJ 500 MG in PREMIX 1 EACH IV SCH ×2 (08:16→16:15)
[2019-08-01 08:41] LABS: ABG Base Excess -17.5 MMOL/L (-2.5-2.5); ABG HCO3 11.1 MMOL/L (20-26); ABG Oxygen Saturation 99.8 % (95-100); ABG PCO2 23.5 MM HG (35-48); ABG TCO2 8.9 MMOL/L (23-27)
[2019-08-01 08:43] LABS: ABG PH 7.204 (7.35-7.45)
[2019-08-01] MEDS: HYDROCORTISONE 100 MG VIAL IV SCH ×2 (10:08→16:13)
[2019-08-01] MEDS ORDERED: NOREPINEPHRINE 4 MG/4 ML VIAL IV ONE (12:11)
[2019-08-01] MEDS: NOREPINEPHRINE 8 MG in SODIUM CHLORIDE 0.9% 242 ML IV PRN ×2 (12:16→21:48)
[2019-08-01 13:32] LABS: Albumin 1.9 G/DL (3.4-5.0); Bilirubin,Total 0.8 MG/DL (0.2-1.0); Calcium 6.7 MG/DL (8.5-10.1); Osmolality,Calculated 292.4 MOS/KG (273-304); Total Protein 5.2 G/DL (6.4-8.3)
[2019-08-01] MEDS ORDERED: DEXTROSE 10% 250 ML BAG IV PRN (15:00)
[2019-08-01] MEDS ORDERED: DEXTROSE 10% 250 ML IV ONE (15:36)
[2019-08-01 19:16] VITALS: BP 97/56
[2019-08-02] MEDS ORDERED: FAMOTIDINE 20 MG/2 ML VIAL IV SCH (01:00)
== END 2019-08-02 00:47 | disposition expired | DRG 208 ==
LOC: EDUNIT# → EDBD → N.ED 18:12 → N.EDINP 08-01 00:39 → SUATTDRO 08-01 00:39 → N.ICU 08-01 02:00
PROVIDERS: ADMIT Internal Medicine; ATTEND Family Medicine